=== PATIENT | male | born 1955 | race Caucasian/White ===

== ENCOUNTER 2022-04-14 09:21 | Inpatient (IN) | payer MEDICARE, OTHER ==
[~2022-04-14] VITALS: Ht 299.7 cm; Wt 67.6 kg
[2022-04-14] MEDS ORDERED: SODIUM CHLORIDE 0.9% 1,000 ML IV ONE (10:30)
[2022-04-14 10:47] LABS: BASOPHILS % 0.4 % (0.0-2.0); EOSINOPHILS % 1.7 % (0.0-5.0); HEMATOCRIT. 39.8 % (42.0-52.0); HEMOGLOBIN. 13.3 g/dL (14.0-18.0); MEAN CORPUSCULAR HEMOGLOBIN 31.2 pg (28.0-32.0); MEAN CORPUSCULAR VOLUME 93.3 fL (80.0-94.0); MEAN PLATELET VOLUME 7.4 fl (7.4-10.4); MONOCYTES % 13.7 % (2.0-8.0); NEUTROPHILS % 60.2 % (40.0-76.0); PLATELET 117 x1000/uL (130-400); RED BLOOD CELL COUNT 4.27 mill/uL (4.7-6.1); RED CELL DISTRIBUTION WIDTH 16.4 % (11.6-14.6)
[2022-04-14 10:53] LABS: CHLORIDE 105 mEq/L (98-107); INR 0.9; PROTHROMBIN TIME 10.2 sec (9.6-11.0)
[2022-04-14] MEDS ORDERED: IOHEXOL-300 100 ML BOTTLE ONE (13:29)
[2022-04-14 13:58] LABS: CLARITY URINE CLEAR (CLEAR); COLOR URINE YELLOW (YELLOW); KETONES URINE TRACE (NEGATIVE); LEUKOCYTE ESTERASE URINE NEGATIVE (NEGATIVE); NITRITE URINE NEGATIVE (NEGATIVE); OCCULT BLOOD URINE NEGATIVE (NEGATIVE); PROTEIN URINE NEGATIVE (NEGATIVE); SPECIFIC GRAVITY URINE 1.038 (1.005-1.030); UROBILINOGEN URINE 0.2 E.U./dL (0.2-1.0)
[2022-04-14 18:26] VITALS: BP 136/68
[2022-04-14] MEDS ORDERED: ACETAMINOPHEN 325MG TABLET PO PRN ×2 (18:30)
[2022-04-14] MEDS ORDERED: DOCUSATE SODIUM 100MG CAPSULE PO PRN (18:30)
[2022-04-14] MEDS ORDERED: ONDANSETRON HCL 4MG/2ML INJ IV PRN (18:30)
[2022-04-14] MEDS ORDERED: IPRATROPIUM/ALBUTEROL 0.5-3(2.5)MG/3ML NEB NEB PRN (18:30)
[2022-04-14] MEDS ORDERED: HYDROCODONE/ACETAMINOPHEN 5/325MG TABLET PO PRN (18:30)
[2022-04-14] MEDS ORDERED: CLONIDINE 0.1MG TABLET PO PRN (18:30)
[2022-04-14] MEDS ORDERED: GUAIFENESIN 200MG/10ML SUGAR FREE UDC PO PRN (18:30)
[2022-04-14 18:41] VITALS: BP 136/68
[2022-04-14] MEDS ORDERED: NALOXONE HCL 0.4MG/ML VIAL IV PRN (18:45)
[2022-04-14 20:00] VITALS: BP 124/72
[2022-04-14] MEDS ORDERED: PANT40TA51 PO (21:00)
[2022-04-14] MEDS ORDERED: MIRT-89 PO ×2 (21:00→21:22)
[2022-04-14] MEDS ORDERED: NICO-645 TP (21:00)
[2022-04-14] MEDS ORDERED: QUET100T34 PO (21:00)
[2022-04-14] MEDS ORDERED: LORA-250 MT (21:00)
[2022-04-14] MEDS: ENOXAPARIN 40MG/0.4ML SYR SUBCUT SCH (21:00)
[2022-04-14] MEDS ORDERED: PRIM50TA5 PO ×3 (21:00→21:18)
[2022-04-14] MEDS ORDERED: MOM PO (21:00)
[2022-04-14] MEDS ORDERED: RISP4TAB31 PO (21:00)
[2022-04-14] MEDS ORDERED: NITR0.4T49 SL ×2 (21:00→21:27)
[2022-04-14] MEDS ORDERED: VALP250S5 PO (21:01)
[2022-04-14] MEDS ORDERED: TRAZ-251 PO ×2 (21:01→21:23)
[2022-04-14] MEDS ORDERED: LORAZEPAM 1MG TABLET PO PRN (21:15)
[2022-04-14] MEDS ORDERED: VALP250C3 PO (21:17)
[2022-04-14] MEDS ORDERED: AMLO5TAB88 PO (21:19)
[2022-04-14] MEDS ORDERED: PROP10TA10 PO (21:19)
[2022-04-14] MEDS ORDERED: RISP1TAB97 PO (21:21)
[2022-04-14] MEDS ORDERED: QUET100T PO (21:24)
[2022-04-14] MEDS ORDERED: BENZ0.5T43 PO (21:28)
[2022-04-14] MEDS ORDERED: DIVA500T3 PO (21:29)
[2022-04-14] MEDS ORDERED: DIVA125T2 PO (21:29)
[2022-04-14] MEDS: MIRTAZAPINE 15MG TABLET PO SCH (21:33)
[2022-04-14] MEDS: TRAZODONE HCL 50MG TABLET PO SCH (21:33)
[2022-04-14] MEDS: RISPERIDONE 1MG TABLET PO SCH (21:33)
[2022-04-14] MEDS: PRIMIDONE 50MG TABLET PO SCH (22:08)
[2022-04-15] VITALS (7 sets, daily range): BP systolic 102–130; BP diastolic 61–83
[2022-04-15 05:47] LABS: HEMATOCRIT. 37.5 % (42.0-52.0); HEMOGLOBIN. 12.8 g/dL (14.0-18.0); MEAN CORPUSCULAR HEMOGLOBIN 31.9 pg (28.0-32.0); MEAN CORPUSCULAR VOLUME 93.2 fL (80.0-94.0); MEAN PLATELET VOLUME 7.3 fl (7.4-10.4); PLATELET 113 x1000/uL (130-400); RED BLOOD CELL COUNT 4.02 mill/uL (4.7-6.1); RED CELL DISTRIBUTION WIDTH 16.1 % (11.6-14.6)
[2022-04-15 06:12] LABS: CHLORIDE 104 mEq/L (98-107)
[2022-04-15 06:21] LABS: FERRITIN 145 ng/mL (22-322)
[2022-04-15 06:40] LABS: T4 FREE 0.64 ng/dL (0.76-1.46); TOTAL IRON BINDING CAPACITY 318 ug/dL (250-450)
[2022-04-15] MEDS ORDERED: PANTOPRAZOLE 40MG DR TABLET PO SCH (07:50)
[2022-04-15 08:17] LABS: VITAMIN B12 SERUM 1227 pg/mL (211-911)
[2022-04-15 09:44] LABS: PLATELET ESTIMATE SLIGHTLY DECREASED
[2022-04-15] MEDS: VALPROIC ACID 250MG CAPSULE PO SCH ×3 (09:45→18:23)
[2022-04-15] MEDS: NICOTINE 7MG PATCH TD SCH (09:45)
[2022-04-15] MEDS: RISPERIDONE 1MG TABLET PO SCH ×2 (09:49→19:30)
[2022-04-15] MEDS: PANTOPRAZOLE SODIUM 40 MG/VIAL IV SCH (18:25)
[2022-04-15] MEDS: ENOXAPARIN 40MG/0.4ML SYR SUBCUT SCH (19:30)
[2022-04-15] MEDS: MIRTAZAPINE 15MG TABLET PO SCH (19:30)
[2022-04-15] MEDS: PRIMIDONE 50MG TABLET PO SCH (19:30)
[2022-04-15] MEDS: TRAZODONE HCL 50MG TABLET PO SCH (19:30)
[2022-04-16 00:33] LABS: HEMATOCRIT 32.5 % (42.0-52.0); HEMOGLOBIN 11.2 g/dL (14.0-18.0)
[2022-04-16 04:00] VITALS: BP 111/59
[2022-04-16] MEDS: PANTOPRAZOLE SODIUM 40 MG/VIAL IV SCH (06:00)
[2022-04-16 08:00] VITALS: BP 127/73
[2022-04-16 08:46] LABS: HEMATOCRIT. 34.9 % (42.0-52.0); MEAN CORPUSCULAR VOLUME 92.7 fL (80.0-94.0); MEAN PLATELET VOLUME 7.3 fl (7.4-10.4); PLATELET 119 x1000/uL (130-400); RED BLOOD CELL COUNT 3.76 mill/uL (4.7-6.1); RED CELL DISTRIBUTION WIDTH 16.3 % (11.6-14.6)
[2022-04-16 08:56] LABS: CHLORIDE 103 mEq/L (98-107)
[2022-04-16] MEDS: NICOTINE 7MG PATCH TD SCH (09:00)
[2022-04-16] MEDS: RISPERIDONE 1MG TABLET PO SCH (09:53)
[2022-04-16] MEDS: VALPROIC ACID 250MG CAPSULE PO SCH ×2 (09:53→12:25)
[2022-04-16 12:00] VITALS: BP 109/63
[2022-04-16 12:48] VITALS: BP 109/63
[2022-04-16 14:27] VITALS: BP 114/68
[2022-04-16 20:47] LABS: PLATELET ESTIMATE DECREASED
== END 2022-04-16 18:15 | DRG 378 ==
LOC: ER 09:37 → UNDOADMIN 15:48 → 6WST 15:48 → EDBEDREQ 16:51 → EDBEDREQSVC 16:51 → EDBEDREQTM 16:51 → ENRESERV 16:56 → SUPCPDRO 17:09
PROVIDERS: ADMIT Internal Medicine; ATTEND Internal Medicine
DX: K92.2 Gastrointestinal hemorrhage, unspecified (principal); E44.0 Moderate protein-calorie malnutrition; Z68.1 Body mass index [BMI] 19.9 or less, adult; D64.9 Anemia, unspecified; D69.6 Thrombocytopenia, unspecified; F20.9 Schizophrenia, unspecified; I11.0 Hypertensive heart disease with heart failure; I50.9 Heart failure, unspecified; J44.9 Chronic obstructive pulmonary disease, unspecified; K43.9 Ventral hernia without obstruction or gangrene; F17.210 Nicotine dependence, cigarettes, uncomplicated; K43.5 Parastomal hernia without obstruction or gangrene; Z20.822 Contact with and (suspected) exposure to COVID-19; Z90.49 Acquired absence of other specified parts of digestive tract; Z88.1 Allergy status to other antibiotic agents
CPT/HCPCS: 36415; 74177; 80048; 80053; 81003; 82270; 82607; 82728; 82746; 82962; 83540; 83550; 83605; 84439; 84443; 85014; 85018; 85025; 87426; 99285; C9113; J1650; Q9967